=== PATIENT | female | born 1995 | race Caucasian/White ===

== ENCOUNTER 2018-06-02 05:57 | Day surgery (SDC) | payer BC, SELFPAY ==
[2018-06-02] VITALS (10 sets, daily range): BP systolic 88–128; BP diastolic 41–80; PULSE 55–97; RESP 14–16; TEMP 36.9–37.4; O2SAT 98–100; BMI 23.5
[2018-06-02 06:51] LABS: Hematocrit 41.6 % (37-47); Mean Corp Hgb Conc 33.7 g/gl (32-36); Mean Corpuscular Hgb 29.4 pg (27.0-32.0); Mean Corpuscular Volume 87.4 fL (81-99); Mean Platelet Vol. 10.4 fl (6.2-12.0); Platelet Count 271 K/mm3 (150-450); RBC Distribution Width CV 12.1 % (11.6-14.6); Red Blood Count 4.76 M/mm3 (4.2-5.4)
[2018-06-02 06:53] LABS: Scan Indicated on CBC? Y/N NO
[2018-06-02 07:26] LABS: Pregnancy, Serum, hCG Quali. NEGATIVE Negative (0-9 Nonpreg)
--- NOTE | 2018-06-02 07:32 | PCM.DC ---
You will use the following diet at home:: No restrictions Discharge Activity: Return to Normal Activity, May Shower, May Take a Tub Bath May resume sexual activity in: 4 weeks Lifting Restrictions: no restrictions Call your doctor if you observe: Fever of 101 or Higher, Using more than one pad per hour, Uncontrolled pain Additional Instructions: You may take tylenol , Aleve, or ibuprofen as needed for any pain. Pain should be minimal , if any. You may have some light spotting after surgery. If bleeding heavily, call Dr Patel. As discussed: the flow pattern of your period may change a little after this procedure. Allergies/Adverse Reactions: Allergies No Known Allergies Allergy (Verified 06/01/18 08:58) Medications to take at Discharge Ascorbic Acid [Vitamin C] 500 mg PO DAILY@0800 06/01/18 Ethinyl Estradiol/Drospirenone [Araceli 28 Tablet] 1 each PO DAILY 06/01/18 Multivitamins,Therapeutic [Multivitamin] 1 tablet PO DAILY 06/01/18 [place]-3 Fatty Acids [Fish Oil] 1,600 mg PO DAILY 06/01/18 Sertraline HCl [Zoloft] 25 mg PO DAILY 06/01/18 Primary Care Physician: Swathi Mora NP-C [Primary Care Provider] - Test Results: Test results from this visit will be discussed in further detail at your follow-up appointment, if applicable. Please Follow Up With: Britni Patel MD - [phone] When: in 2 -4 wkfor check up. Proposed Discharge Date: 06/02/18
--- NOTE | 2018-06-02 07:35 | DCINST_ITS ---
You will use the following diet at home:: No restrictions Discharge Activity: Return to Normal Activity, May Shower, May Take a Tub Bath May resume sexual activity in: 4 weeks Lifting Restrictions: no restrictions Call your doctor if you observe: Fever of 101 or Higher, Using more than one pad per hour, Uncontrolled pain Additional Instructions: You may take tylenol , Aleve, or ibuprofen as needed for any pain. Pain should be minimal , if any. You may have some light spotting after surgery. If bleeding heavily, call Dr Patel. As discussed: the flow pattern of your period may change a little after this procedure. Allergies/Adverse Reactions: Allergies No Known Allergies Allergy (Verified 06/01/18 08:58) Medications to take at Discharge Ascorbic Acid [Vitamin C] 500 mg PO DAILY@0800 06/01/18 Ethinyl Estradiol/Drospirenone [Araceli 28 Tablet] 1 each PO DAILY 06/01/18 Multivitamins,Therapeutic [Multivitamin] 1 tablet PO DAILY 06/01/18 [place]-3 Fatty Acids [Fish Oil] 1,600 mg PO DAILY 06/01/18 Sertraline HCl [Zoloft] 25 mg PO DAILY 06/01/18 Primary Care Physician: Swathi Mora NP-C [Primary Care Provider] - Test Results: Test results from this visit will be discussed in further detail at your follow- up appointment, if applicable. Please Follow Up With: Britni Patel MD - [phone] When: in 2 -4 wkfor check up. Proposed Discharge Date: 06/02/18
[2018-06-02] MEDS: Bupiv/Epi 0.5% Mpf 30 ML Vial (07:45)
--- NOTE | 2018-06-02 15:14 | PCM.OP.BLANK ---
Operative Report Date of Procedure: 06/02/18 PROCEDURE: Hymenectomy Preoperative diagnosis: Dyspareunia Thickened hymen Postoperative diagnosis: Dyspareunia Thickened hymen Surgeon: Britni Patel MD Anesthesia: MAC IV sedation, ROBERT Field EBL Minimal, under 50 cc Complications: None. Drains: None Fluids: Replacement Lactated ringers Findings: On exam under anesthesia: A thickened hymenal ring is noted. An additional band of hymenal tissue is noted across the introitus in anterior to posterior orientation , towards the left side. There is a normal appearing urethra and perineum. The vaginal caliber and length are normal. Uterus and adnexae within normal limits Narrative account: After the risks, benefits, alteratives of the procedure were reviewed with the patient, informed consent was obtained. The patient was taken to the OR with IV running and placed in dorsal supine position on the operating table. She was given MAC IV sedation, and then repositioned to the dorsal lithotomy position and was prepped and draped in the usual sterile fashion without vault prep. An exam under anesthesia was performed with the findings noted above. The band of hymenal tissue across the introitus was excised and stellate incisions were created in the thick hymenal tissue. The thick hymenal tissue at the posterior introitus was excised. Interrupted and figure of 8 stitches of 3-0 chromic were placed for hemostasis as needed. Bovie cautery was used minimally in addition for hemostasis. Excellent hemostasis was noted. The procedure was terminated. The patient was returned to dorsal supine position and awakened from IV sedation. She was transferred to her recovery room bed in stable condition after tolerating the procedure well. Ray Nikia, needle and instrument counts were correct x two. Medications given intraoperatively included: Marcaine instilled as local anesthetic. For a complete listing of medications given intraoperatively, please see the anesthesia record.
--- OUTSIDE RECORDS SUMMARY | 2018-07-19 00:14 | XMS RPT_ITS ---
:1995 Author Organization [facility] Care Team Providers Name Role Phone Swathi Mora Attending Unavailable Swathi Mora Referring Unavailable Swathi Mora Consulting Unavailable Britni Patel Attending Unavailable Britni Patel Attending Unavailable Britni Patel Referring Unavailable Swathi Mora Primary Care Unavailable PROBLEMS PROBLEMS DATE TYPE CONDITION / CODE ATTENDING STATUS SOURCE 07/05/2018 Unknown Z12.4 - Britni Patel Active [place] Encounter for Community screening for Hospital malignant Repository neoplasm of cervix / Z12.4(ICD-10) PROCEDURES PROCEDURES No Procedure Records FoundRESULTS RESULTS PAP I-G W/RFX HRHPV Collected: 07/01/2018 Status: F Source: [place] 9:45 AM [facility] REPOSITORY Order Comment: CYTOLOGY INFORMATION: - CLINICAL INFORMATION: - DATE LMP/MENOPAUSE: 06/13/18 LMP - COLLECTION VIAL: Thin Prep Vial - TECHNICAL PROGRAM MANAGER SOURCE: CERVICAL/ENDOCERVICAL - COLLECTION TECHNIQUE: BRUSH/SPATULA Specimen Comment: [id number] Specimen Comment: Other..............Post Menopausal Specimen Comment: No. of containers..01 ThinPrep Vial TYPE CODE TESTS RESULT OUT OF RANGE REFERENCE UNITS LAB L7400.0800 . Normal DIAGN Comment Result Comment: NEGATIVE FOR INTRAEPITHELIAL LESION AND MALIGNANCY. THIS SPECIMEN WAS RESCREENED PART OF OUR METALLURGICAL LABORATORY ASSISTANT PROGRAM. LAB L7400.0900 . Normal ADEQ Comment Result Comment: Satisfactory for evaluation. Endocervical and/or squamous metaplastic cells (endocervical component) are present. LAB L7400.1400 . Normal PERFORM Comment Result Comment: Adriana Andrews, White Sugar Syrup Operator ([facility]) LAB L7400.1500 . Normal QC Comment REV Result Comment: Olga Phoenix, Supervisory White Sugar Syrup Operator ([facility]) LAB L7400.2575 . Normal TEST METHOD Comment Result Comment: This liquid based ThinPrep(R) pap test was screened with the use of an image guided system. LAB L7400.2600 . Normal . COMM LAB L7400.2700 . Normal PAPSMR Comment Result Comment: The Pap smear is a screening test designed to aid in the detection of premalignant and malignant conditions of the uterine cervix. It is not a diagnostic procedure and should not be used as the sole means of detecting cervical cancer. Both false-positive and false-negative reports do occur. LAB L7400.2800 . Normal HPV RFLX Comment Result Comment: The HPV DNA reflex criteria were not met with this specimen result therefore, no HPV testing was performed. Performed at: [facility] [id number] Librarian Head: Bridget Ibarra MD, Phone: [phone] Performed By: #### L7400.0350 #### [facility] (refer to report for specific site) refer to report for address and phone number OPERATIVE REPORT Observed: 06/02/2018 Status: F Source: [place] 3:28 PM [facility] REPOSITORY [facility] Medical Records Department [address] [place] [address] Operative Report 06/02/18 1514 MR#: [id number] Acct: [id number] Name: ALEAH ROMO Rep #: [id number] : 1995 23 From: Britni Patel MD PCP: Swathi Mora NP Status: [facility] [place] [facility] [place] Report Date of Procedure: 06/02/18 PROCEDURE: Hymenectomy Preoperative diagnosis: Dyspareunia Thickened hymen Postoperative diagnosis: Dyspareunia Thickened hymen Surgeon: Britni Patel MD Anesthesia: MAC IV sedation, ROBERT Field EBL Minimal, under 50 cc Complications: None. Drains: None Fluids: Replacement Lactated ringers Findings: On exam under anesthesia: A thickened hymenal ring is noted. An additional band of hymenal tissue is noted across the introitus in anterior to posterior orientation , towards the left side. There is a normal appearing urethra and perineum. The vaginal caliber and length are normal. Uterus and adnexae within normal limits Narrative account: After the risks, benefits, alteratives of the procedure were reviewed with the patient, informed consent was obtained. The patient was taken to the OR with IV running and placed in dorsal supine position on the operating table. She was given MAC IV sedation, and then repositioned to the dorsal lithotomy position and was prepped and draped in the usual sterile fashion without vault prep. An exam under anesthesia was performed with the findings noted above. The band of hymenal tissue across the introitus was excised and stellate incisions were created in the thick hymenal tissue. The thick hymenal tissue at the posterior introitus was excised. Interrupted and figure of 8 stitches of 3-0 chromic were placed for hemostasis as needed. Bovie cautery was used minimally in addition for hemostasis. Excellent hemostasis was noted. The procedure was terminated. The patient was returned to dorsal supine position and awakened from IV sedation. She was transferred to her recovery room bed in stable condition after tolerating the procedure well. Ray Nikia, needle and instrument counts were correct x two. Medications given intraoperatively included: Marcaine instilled as local anesthetic. For a complete listing of medications given intraoperatively, please see the anesthesia record. 06/02/18 1528 <Electronically signed by Britni Patel MD> Date Britni Patel MD CC: Swathi Mora NP; Britni Patel MD Signed DISCHARGE INSTRUCTION Observed: 06/02/2018 Status: F Source: [place] 8:48 AM [facility] REPOSITORY [facility] Medical Records Department [address] [place] [address] Instructions for Home/Discharge Instructions 06/02/18 0732 MR#: [id number] Acct: [id number] Name: ALEAH ROMO Rep #: [id number] : 1995 23 From: Britni Patel MD PCP: Swathi Mora NP Status: [place] [facility] [place] ADDENDUM by Britni Patel MD on 06/02/18 at 0848 A prescription for Estriol vaginal cream will be called in to [facility]'s pharmacy on in [place]. You should apply the cream to vagina with fingertip daily for two weeks, then twice weekly to promote healing after surgery. You will need to call [facility] to arrange to warehouse picker or have delivered. 06/02/18 0848 Date Britni Patel MD cc: Swathi Mora NP * Signed You will use the following diet at home:: No restrictions Discharge Activity: Return to Normal Activity, May Shower, May Take a Tub Bath May resume sexual activity in: 4 weeks Lifting Restrictions: no restrictions Call your doctor if you observe: Fever of 101 or Higher, Using more than one pad per hour, Uncontrolled pain Additional Instructions: You may take tylenol , Aleve, or ibuprofen as needed for any pain. Pain should be minimal , if any. You may have some light spotting after surgery. If bleeding heavily, call Dr Patel. As discussed: the flow pattern of your period may change a little after this procedure. Allergies/Adverse Reactions: Allergies No Known Allergies Allergy (Verified 06/01/18 08:58) Medications to take at Discharge Ascorbic Acid [Vitamin C] 500 mg PO DAILY@0800 06/01/18 Ethinyl Estradiol/Drospirenone [Araceli 28 Tablet] 1 each PO DAILY 06/01/18 Multivitamins,Therapeutic [Multivitamin] 1 tablet PO DAILY 06/01/18 [place]-3 Fatty Acids [Fish Oil] 1,600 mg PO DAILY 06/01/18 Sertraline HCl [Zoloft] 25 mg PO DAILY 06/01/18 Primary Care Physician: Swathi Mora GRAPPLE CREW LEADER-C [Primary Care Provider] - Test Results: Test results from this visit will be discussed in further detail at your follow-up appointment, if applicable. Please Follow Up With: Britni Patel MD - [phone] When: in 2 -4 wkfor check up. Proposed Discharge Date: 06/02/18 06/02/18 0735 <Electronically signed by Britni Patel MD> Date Britni Patel MD CC: Swathi Mora ESTEBAN CBC-COMPLETE BLOOD CNT Collected: 06/02/2018 Status: F Source: [place] NO DIFF 6:44 AM [facility] REPOSITORY TYPE CODE TESTS RESULT OUT OF RANGE REFERENCE UNITS LAB L100.1000 4.4-11.0 K/mm3 Normal WBC 6.0 LAB L100.1200 4.2-5.4 M/mm3 Normal RBC 4.76 LAB L100.1300 12.0-15.0 g/dl Normal HGB 14.0 LAB L100.1400 37-47 % Normal HCT 41.6 LAB L100.1500 81-99 fL Normal MCV 87.4 LAB L100.1600 27.0-32.0 pg Normal MCH 29.4 LAB L100.1700 32-36 g/gl Normal MCHC 33.7 LAB L100.1810 11.6-14.6 % Normal RDW CV 12.1 LAB L100.1820 35.1-43.9 fl Normal RDW SD 38.0 LAB L100.1900 150-450 K/mm3 Normal PLT 271 LAB L100.2000 6.2-12.0 fl Normal MPV 10.4 Performed By: #### L100.0500 #### [facility] [address] [place], [place], [id number] ,SERUM,HCG QUALI. Collected: Status: F Source: [place] 06/02/2018 6:44 AM [facility] REPOSITORY TYPE CODE TESTS RESULT OUT OF REFERENCE UNITS RANGE LAB L700.6700 =>Qualitative mIU/mL Normal HCG Qual < 1 triggr LAB L700.7000 0-9 Nonpreg Negative Normal HCGSQUAL NEGATIVE Performed By: #### L700.6800 #### [facility] [address] [place], [place], [address] ALLERGIES ALLERGIES DATE TYPE / CODE NAME / CODE REACTION SEVERITY SOURCE 06/01/2018 Drug No Known Unknown [place] [facility] Allergy/4160 Allergies/F00 Hospital 59060(SNOMED [id number](RXNOR Repository CT) M) ENCOUNTERS ENCOUNTERS ADMIT/DISCHARGE ACCOUNT ADMITTING ENCOUNTER LOCATION SOURCE NUMBER CLASS 07/01/2018 [id number] Amb[place] [facility] ing:LABSPEC Repository 06/02/2018/ [id number] Ambulatory [place] 4 [facility] ing:SDCRoom: Repository AC04 05/10/2018 [id number] Ambulatory Building:[facility] OHIP Practices Repository PAYERS PAYERS ENCOUNTER GUARANTOR PAYER SUBSCRIBER SOURCE 07/01/2018 ALEAH D Primary TRU WORTMANDOB: [place] [id number] ARTURO Insurance:ANTHE[employer]olic [id number] [facility], y Number: [facility] [id number]: [id number] Repository Date:[id number] () [id number], [place] [address]SG: 07/01/2018 Secondary NOT GIVENUNK [place] Insurance:SELF PAY [facility] Number: Effective Repository Date:2018-07-01 06/02/2018 ALEAH D Primary TRU WORTMANDOB: [place] [id number] ARTURO Insurance:ANTHEMPolic [id number] [facility], y Number: [facility] [id number]: [id number] Repository Date:1457-32-56HK [address] () [address], [place] [address]HP: 06/02/2018 Secondary NOT GIVENUNK [place] Insurance:SELF PAY [facility] Number: Effective Repository Date:2018-05-18 05/10/2018 Aleah D Primary Tru WortmanDOB: OHIP Practices KoverDOB: Insurance:[place] [id number] Repository /[facility] Number: Arturo Aaron [id number] [facility], Date:2237-84-14[place] [address]: [place] [address]Hyt: Name:[place] [address], [place] () (HP)Tel: [phone]: [phone]
--- OUTSIDE RECORDS SUMMARY | 2018-07-19 00:14 | XMS RPT_ITS | Continuity of Care Document ---
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) Comments: has weaned self off of med glycopyroate and not sweating anymore Status: Active Influenza vaccination declined (Renamed from Refused influenza vaccine) (Z28.21, V64.06) Status: Active Nonsmoker (Z78.9, V49.89) Status: Active Painful menstrual periods (N94.6, 625.3) Comments: Sees [facility] improved on new med Status: Active Medications Name Dates Details fish oil Active 1500 mg daily Multivitamin Adult Oral Tablet 1 (one) Tablet Tablet daily for 0 days Quantity: 30 {Tablet} Refills: 0 Ordered:23-Jul-2017 Slarb Deedee PAINTER Start : 30-Jun-2017 Active Ocella 3-0.03 MG Oral Tablet 1 (one) Tablet daily for 0 days Quantity: 30 {Tablet} Refills: 2 Ordered:23-Jul-2017 Swathi Mora CNP, CNP, Mary E Start : 23-Jul-2017 Active Vitamin C ER 500 MG Oral Capsule Extended Release 1 (one) Capsule Capsule daily for 0 days Quantity: 30 {Capsule} Refills: 0 Ordered:23-Jul-2017 Deedee Novak LPN Start : 30-Jun-2017 Active Zoloft 25 MG Oral Tablet 1 (one) Tablet daily for 0 days Quantity: 90 {Tablet} Refills: 3 Ordered:10-May-2018 Morgan SCHMITZ, Swathi Tate CNP, Swathi Haywood Start : 10-May-2018 Active Glycopyrrolate 2 MG Oral Tablet 1 (one) Tablet bid for 0 days Quantity: 180 {Tablet} Refills: 3 Ordered:23-Jul-2017 Morgan SCHMITZ, Swathi Tate CNP, Swathi Haywood Start : 23-Jul-2017 End : 23-Jul-2017 Inactive Pimtrea 0.15-0.02/0.01 MG (08/11) Oral Tablet 1 (one) Tablet daily for 0 days Quantity: 30 {Tablet} Refills: 0 Ordered:23-Jul-2017 Morgan SCHMITZ, Swathi Tate CNP, Swathi Haywood Start : 30-Jun-2017 End : 23-Jul-2017 Inactive Allergies and Adverse Reactions Name Dates Details No Allergy Information Available Status: Past Medical History Name Dates Details Abdominal pain (R10.9, 789.00) Status: Inactive as of 23-Jul-2017 Abnormal glucose (R73.09, 790.29) Status: Inactive as of 30-Jun-2017 Procedures Procedure Dates Details tubes in ears as child Completed wisdom teeth Completed Comments: removal Family History Unknown Family Member Name Dates Details Maternal Grandmother Comments: ovarian cysts Status: Active Paternal Grandfather Comments: Diabetes, alzheimers/dementia Status: Active Paternal Grandmother Comments: mestatic breast cancer Status: Active Social History Name Dates Details Alcohol use: Non Drinker / No Alcohol Use. Status: Active Tobacco use: Never smoker. Status: Active Smoking Status Name Dates Details Never smoker Vital Signs Date Test Result Details [id number] Temperature 97.7 f Comments: Method: Temporal Pulse 89 /min Comments: Pattern: Regular Respiration Rate 16 /min Comments: Pattern: Unlabored O2 SAT 99 % Comments: Room air BP Systolic 104 mm[Hg] Comments: Patient Position: Sitting; Cuff Location: Left Arm; Cuff Size: Standard BP Diastolic 64 mm[Hg] Comments: Patient Position: Sitting; Cuff Location: Left Arm; Cuff Size: Standard Weight 130.25 lb Height 64 in Body Mass Index Calculated 22.36 kg/m2 Body Surface Area Calculated 1.63 m2 [id number] Temperature 98.5 f Pulse 90 /min Comments: Pattern: Regular Respiration Rate 15 /min Comments: Pattern: Unlabored O2 SAT 98 % Comments: Room air BP Systolic 118 mm[Hg] Comments: Patient Position: Sitting; Cuff Location: Left Arm; Cuff Size: Standard BP Diastolic 76 mm[Hg] Comments: Patient Position: Sitting; Cuff Location: Left Arm; Cuff Size: Standard Weight 133.125 lb Height 64 in Body Mass Index Calculated 22.85 kg/m2 Body Surface Area Calculated 1.65 m2 :45 Temperature 98.2 f Pulse 81 /min Comments: Pattern: Regular Respiration Rate 16 /min Comments: Pattern: Unlabored O2 SAT 98 % Comments: Room air BP Systolic 118 mm[Hg] Comments: Patient Position: Sitting; Cuff Location: Left Arm; Cuff Size: Standard BP Diastolic 72 mm[Hg] Comments: Patient Position: Sitting; Cuff Location: Left Arm; Cuff Size: Standard Weight 131.5 lb Height 64 in Body Mass Index Calculated 22.57 kg/m2 Body Surface Area Calculated 1.64 m2 Results Date Description Value Details :38 CALCIFEDIOL (97672) Comments: PATIENT NOT FASTINGPERFORMED BY: [id number] [id number] Vitamin D, 25-Hydroxy 49.4 ng/mL (Normal) Range: 30.0-100.0 Comments: Vitamin D deficiency has been defined by the [place] [facility] and an Endocrine Society practice guideline as alevel of serum 25-OH vitamin D less than 20 ng/mL (1,2).The Endocrine Society went on to further define vitamin Dinsufficiency as a level between 21 and 29 ng/mL (2).1. IOM ([place] of Medicine). 2010. Dietary reference intakes for calcium and D. [place]: The National Academies Press.2. Clemente MF, Latesha BLOUNT, Loni DANIEL, et al. Evaluation, treatment, and prevention of vitamin D deficiency: an Endocrine Society clinical practice guideline. JCEM. 2010; 96(7):1911-30. [id number] Metabolic Panel, Comprehensive Comments: PATIENT NOT FASTINGPERFORMED BY: [id number] [id number] ([id number]) ALT (SGPT) 21 [iU]/L (Normal) Range: 0-32 AST (SGOT) 19 [iU]/L (Normal) Range: 0-40 Alkaline Phosphatase, S 72 [iU]/L (Normal) Range: 39-117 Bilirubin, Total 0.3 mg/dL (Normal) Range: 0.0-1.2 A/G Ratio 1.7 (Normal) Range: 1.2-2.2 Globulin, Total 3.0 g/dL (Normal) Range: 1.5-4.5 Albumin, Serum 5.0 g/dL (Normal) Range: 3.5-5.5 Protein, Total, Serum 8.0 g/dL (Normal) Range: 6.0-8.5 Calcium, Serum 10.1 mg/dL (Normal) Range: 8.7-10.2 Carbon Dioxide, Total 21 mmol/L (Normal) Range: 18-29 Chloride, Serum 100 mmol/L (Normal) Range: 96-106 Potassium, Serum 4.9 mmol/L (Normal) Range: 3.5-5.2 Sodium, Serum 141 mmol/L (Normal) Range: 134-144 BUN/Creatinine Ratio 11 (Normal) Range: 9-23 eGFR If Africn Am 124 mL/min/1.73 (Normal) eGFR If NonAfricn Am 107 mL/min/1.73 (Normal) Creatinine, Serum 0.79 mg/dL (Normal) Range: 0.57-1.00 BUN 9 mg/dL (Normal) Range: 6-20 Glucose, Serum 69 mg/dL (Normal) Range: 65-99 [id number] TSH (04014) Comments: PATIENT NOT FASTINGPERFORMED BY: [id number] [id number] TSH 1.830 {uIU/mL} (Normal) Range: 0.450-4.500 [id number]-[id number] CBC, Platelets & Auto Diff Comments: PATIENT NOT FASTINGPERFORMED BY: [facility] [id number] [facility] [id number] ([id number]) Immature Grans (Abs) 0.0 {x10E3/uL} (Normal) Range: 0.0-0.1 Immature Granulocytes 0 % (Normal) Baso (Absolute) 0.0 {x10E3/uL} (Normal) Range: 0.0-0.2 Eos (Absolute) 0.0 {x10E3/uL} (Normal) Range: 0.0-0.4 Monocytes(Absolute) 0.7 {x10E3/uL} (Normal) Range: 0.1-0.9 Lymphs (Absolute) 2.6 {x10E3/uL} (Normal) Range: 0.7-3.1 Neutrophils (Absolute) 4.7 {x10E3/uL} (Normal) Range: 1.4-7.0 Basos 1 % (Normal) Eos 1 % (Normal) Monocytes 9 % (Normal) Lymphs 32 % (Normal) Neutrophils 57 % (Normal) Platelets 347 {x10E3/uL} (Normal) Range: 150-379 RDW 12.4 % (Normal) Range: 12.3-15.4 MCHC 33.8 g/dL (Normal) Range: 31.5-35.7 MCH 29.3 pg (Normal) Range: 26.6-33.0 MCV 87 fL (Normal) Range: 79-97 Hematocrit 43.5 % (Normal) Range: 34.0-46.6 Hemoglobin 14.7 g/dL (Normal) Range: 11.1-15.9 RBC 5.02 {x10E6/uL} (Normal) Range: 3.77-5.28 WBC 8.1 {x10E3/uL} (Normal) Range: 3.4-10.8 78-[id number]:09 HgA1C , Office (24327) HgA1C , Office 4.9 % (Normal) Range: 4.6 - 7.1 12-[id number]:09 Blood Glucose , Office (55913) Blood Glucose , Office 103 (Normal) :54 Urinalysis, Office (15574) UA - LEUKOCYTE ESTERASE Large (Normal) UA - NITRITE Positive (Normal) URINE UROBILINGN JOSE TIMED Normal mg/dL (Normal) UA - PROTEIN 300 mg/dL (Normal) UA - PH 6 (Abnormal) UA - BLOOD ++ (Abnormal) UA - SPECIFIC GRAVITY 1.020 (Normal) UA - KETONES 15 mg/dL (Abnormal) UA - BILIRUBIN Large (Normal) UA - GLUCOSE 100 (Abnormal) Plan of Care Name Dates Details Instructions Nonsmoker : Eprescribed prescriptions (G8553) Indication: Nonsmoker Painful menstrual periods : Eprescribed prescriptions (G8553) Indication: Painful menstrual periods Hyperhidrosis of axilla : Follow up in 2 weeks Indication: Hyperhidrosis of axilla Anxiety : Eprescribed prescriptions (G8553) Indication: Anxiety Planned Observations URINE MURIEL CULTURE-IDENTIFICATN ([id number])Indication: Abdominal pain On: [id number] Request Instructions Name Dates Details Nonsmoker : How to access health information online Indication: Nonsmoker Nonsmoker : How to access health information online - Detail Indication: Nonsmoker Nonsmoker : Patient Instructions Indication: Nonsmoker Painful menstrual periods : How to access health information online Indication: Painful menstrual periods Painful menstrual periods : How to access health information online - Detail Indication: Painful menstrual periods Painful menstrual periods : Patient Instructions Indication: Painful menstrual periods Anxiety : How to access health information online Indication: Anxiety Anxiety : How to access health information online - Detail Indication: Anxiety Anxiety : Patient Instructions Indication: Anxiety Encounters Office Visit On: 10-May-2018 9:20 Encounter Reason: Follow up for chronic medical issues - The patient feels well with no complaints, has good energy level and is sleeping well. Patient has been compliant with instructions. Current medication use: no pete End: 10-May-2018 9:45 e effects, compliant with dosing regimen and considered effective by patient. Patient sleeps 8 (8-10) hours per night. Nutrition: balanced diet. Note for Follow up for chronic medical issues: Weaned s elf off of glycopyrolate, and not sweating now.No abdominal painEncounter Diagnosis: Nonsmoker, BMI 22.0-22.9, adult, Influenza vaccination declined (Renamed from Refused influenza vaccine), Hyperhidrosis of axilla, Anxiety [facility] Office Visit On: 23-Jul-2017 13:56 Encounter Reason: Follow up tests - Diagnostic tests include other (labs)., [ADDITIONAL REASON] history of sweating - Pt on med for sweating glycopyrolate x several years, Encounter Diagnosis: Painful menstrual periods, Nonsmoker, End: 23-Jul-2017 14:35 BMI 22.0-22.9, adult, Hyperhidrosis of axilla [facility] Office Visit On: 30-Jun-2017 9:32 Encounter Reason: new patient female physical - Last seen more than 1 year ago (new pt). General health: feels well with minor complaints (stomach pains. ??Just came from obgyn and didn't find anything.). The patient's a End: 30-Jun-2017 10:46 ppetite is normal (typically normal, recently decreased). Nutrition: normal/adequate. Exercises 0 days per week. Sleeps on average 8 hours per night. Normal bowel and bladder habits. Safety measures inc lude appropriate use of safety belts and home smoke detectors. Current emotional problems include anxiety. Note for Physical exam: Pt transfer from Dr. Page looking to establish having abd pain today because started period today. STomach pain since SAt with ? flu. No diarrhea. No possiblity of is not sexually active.Has been on the pill for a year and cramping improved, [ADDITIONAL REASON] Anxiety - Note for Anxiety: On anxiety med since middle school, did counseling in past and on zoloft and is helping. Encounter Diagnosis: Anxiety, Abdominal pain, Abnormal glucose, Painful menstrual periods, Hyperhidrosis of axilla [facility] Payers Afia MICHEL/Gianna Forrest; a guarantor
== END 2018-06-02 10:23 | disposition home or self-care (01) ==
LOC: SDC 06:01 → AC 06:07
PROVIDERS: Anesthesiology; Family Provider Nurse Practitioner; PCP Nurse Practitioner; Referring Provider Obstetrics & Gynecology; Visit Provider Obstetrics & Gynecology
PROC: (CPT 56700; principal; 2018-06-02 07:20)
DX: N89.6 Tight hymenal ring (principal); N94.10 Unspecified dyspareunia; N94.2 Vaginismus; F41.8 Other specified anxiety disorders
CPT/HCPCS: 56700; 36415; 84703; 85027; J7120

== ENCOUNTER → 2018-07-01 13:52 | Outpatient (CLI) | payer BC, SELFPAY ==
[2018-06-02 06:42] VITALS: BMI 23.5
[2018-07-06 14:10] LABS: HPV Reflexed? NOT INDICATED
== END ==
PROVIDERS: Visit Provider Obstetrics & Gynecology
DX: Z12.4 Encounter for screening for malignant neoplasm of cervix (principal)
CPT/HCPCS: 88175; G0145

== ENCOUNTER → 2023-08-13 | Outpatient (CLI) | payer OTHER, SELFPAY ==
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
[2023-08-18 18:22] LABS: HPV Reflexed? NOT INDICATED
== END | disposition home or self-care (01) ==
PROVIDERS: PCP Student in an Organized Health Care Education/Training Program; Visit Provider Registered Nurse
DX: Z12.4 Encounter for screening for malignant neoplasm of cervix (principal)
CPT/HCPCS: 88175; G0145

== ENCOUNTER → 2024-09-14 | Outpatient (CLI) | payer OTHER, SELFPAY ==
--- NOTE | 2024-09-14 12:47 | US_ITS ---
PROCEDURE: PELVIC W/ TRANSVAGINAL REASON FOR EXAM: OVARIAN CYST TECHNIQUE: Transabdominal and transvaginal pelvic ultrasound FINDINGS: Measurements: Uterus: 8.6 x 4.2 x 3.6 the uterine volume is 67.4 mL Endometrial Thickness: 3 mm Right Ovary: 3.7 x 2.4 x 1.8 with a volume of 8.4 mL. Left Ovary: 3.7 x 3.3 x 1.7 with a volume of 10.6 mL. Uterus: Normal size and echogenicity. A couple of nabothian cysts are noted in the cervical region. Endometrium: Unremarkable. Right ovary: Multiple small follicles are present. Normal echogenicity and vascularity. Left ovary: Multiple small follicles present. Normal echogenicity and vascularity. Other adnexal findings: None Cul-de-sac: No free fluid. US/Pelvic w/ Transvaginal IMPRESSION: Normal pelvic ultrasound. Reading Location: [facility]
== END | disposition home or self-care (01) ==
LOC: US 12:45
PROVIDERS: PCP Student in an Organized Health Care Education/Training Program; Referring Provider Obstetrics & Gynecology; Visit Provider Obstetrics & Gynecology
DX: N83.209 Unspecified ovarian cyst, unspecified side (principal)
CPT/HCPCS: 76830; 76856